=== PATIENT | female | born 1970 | race Two or more races ===

== ENCOUNTER 2024-03-09 06:45 | Day surgery (SDC) | payer MEDICAID, SELFPAY ==
[2024-03-06 14:43] VITALS: BMI 29.0
[2024-03-09] VITALS (7 sets, daily range): BP systolic 113–160; BP diastolic 69–92; PULSE 58–79; RESP 8–15; TEMP 36.6–36.8; O2SAT 98–100; BMI 30.7
[2024-03-09 08:06] LABS: HCG,Qualitative Serum Negative
[2024-03-09] MEDS: DiphenhydrAMINE INJ 50 MG/ML VIAL 25 MG IV (08:11)
[2024-03-09] MEDS: fentaNYL CIT INJ 50 mCg/ML AMP 2ML (ASD USE ONLY) IV (08:13)
[2024-03-09] MEDS: MIDAZOLAM INJ 1 MG/ML VIAL 2 ML (ASD USE ONLY) 2 MG IV (08:14)
== END 2024-03-09 09:12 | disposition home or self-care (01) ==
PROVIDERS: PCP Family Medicine; Referring Provider Surgery; Visit Provider Surgery
PROC: 0DBE8ZX Excision of Large Intestine, Via Natural or Artificial Opening Endoscopic, Diagnostic (ICD-10-PCS; CPT 45380; principal; 2024-03-09 07:30)
DX: K64.1 Second degree hemorrhoids (principal); K57.31 Diverticulosis of large intestine without perforation or abscess with bleeding
CPT/HCPCS: 45378; 36415; 81025; 84703; J1200; J2250; J3010

== ENCOUNTER 2024-09-03 13:27 | Outpatient (AMB) | payer MEDICAID, SELFPAY ==
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
--- NOTE | 2024-09-03 13:43 | XR_ITS ---
Examination: Bilateral knees single view Right knee PA lateral axial 3 views TECHNIQUE: Bilateral AP knees supine single view Right knee PA supine flexion single view lateral supine chest single view, axial right knee 3 views Date and time: September 03, 2024 1426 hours INDICATIONS: Patient fell 8 years ago with injury to the knee, persistent knee pain. FINDINGS: Advanced right knee tricompartment osteoarthritis including severe narrowing lateral joint space [id number] Ossified body above the right patella No acute fracture Partial visualization intramedullary femoral law Mild narrowing lateral joint space left knee No left knee fracture IMPRESSION: Advanced right knee tricompartment osteoarthritis
[2024-09-03 13:45] VITALS: BP 114/75; PULSE 79; RESP 18; TEMP 36.4; O2SAT 97
== END 2024-09-03 13:56 | disposition home or self-care (01) ==
LOC: HODSRG 13:27
PROVIDERS: PCP Family Medicine; Referring Provider Family Medicine; Supervising Provider Orthopaedic Surgery Adult Reconstructive Orthopaedic Surgery; Visit Provider Orthopaedic Surgery Adult Reconstructive Orthopaedic Surgery
DX: M17.11 Unilateral primary osteoarthritis, right knee (principal); M25.561 Pain in right knee
CPT/HCPCS: 73564; 99203; G0463

== ENCOUNTER 2024-09-24 08:15 | Outpatient (AMB) | payer MEDICAID, SELFPAY ==
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
[2024-09-24 08:30] VITALS: BP 131/81; PULSE 67; RESP 18; TEMP 36.3; O2SAT 97
== END 2024-09-24 08:54 | disposition home or self-care (01) ==
LOC: HODSRG 08:15
PROVIDERS: PCP Family Medicine; Referring Provider Family Medicine; Supervising Provider Orthopaedic Surgery Adult Reconstructive Orthopaedic Surgery; Visit Provider Orthopaedic Surgery Adult Reconstructive Orthopaedic Surgery
DX: M17.11 Unilateral primary osteoarthritis, right knee (principal); M25.561 Pain in right knee; M21.061 Valgus deformity, not elsewhere classified, right knee; Z99.3 Dependence on wheelchair
CPT/HCPCS: 20610; 99213; J1010; J2795; G0463

== ENCOUNTER 2024-11-05 15:30 | Outpatient (AMB) | payer MEDICAID, SELFPAY ==
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
[2024-11-05 15:37] VITALS: BP 126/83; PULSE 78; RESP 18; TEMP 36.8; O2SAT 97
== END 2024-11-05 15:47 | disposition home or self-care (01) ==
LOC: HODSRG 15:30
PROVIDERS: PCP Family Medicine; Referring Provider Family Medicine; Supervising Provider Orthopaedic Surgery Adult Reconstructive Orthopaedic Surgery; Visit Provider Orthopaedic Surgery Adult Reconstructive Orthopaedic Surgery
DX: M17.11 Unilateral primary osteoarthritis, right knee (principal); M25.561 Pain in right knee
CPT/HCPCS: 99213; G0463

== ENCOUNTER 2024-11-10 11:30 | Outpatient (RCR) | payer MEDICAID, SELFPAY ==
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
--- NOTE | 2024-11-04 12:43 | PT.ODAYNRPT ---
PT Outpatient Daily Note OP Daily Note Outpatient Physical Therapy Treatment Date: 11/04/24 Visit Reasons: RT knee pain Subjective: Pt brought in by . Objective: Please see flow sheet for ther ex list. Assessment: Pt demonstrates excessive medial collapse with standing and during GT. Pt instructed on strengthening interventions and encouraged to continue at home. Plan: Continue with pOC. Length of Time (minutes) of Treatment: 30 Minutes Procedure Charges Therapeutic Exercise 30 minutes: Yes
--- NOTE | 2024-11-10 12:54 | PT.ODAYNRPT ---
PT Outpatient Daily Note OP Daily Note Outpatient Physical Therapy Treatment Date: 11/10/24 Visit Reasons: RT knee pain Subjective: Pt reports she is doing well with minimal Rt knee pain. Objective: See F/S for therex performed Assessment: Demo'd significant weakness of hip abductors, advised to perform seated hip abduction at home. Presents with excessive medial collapsing of R LE when standing and ambulating. Pt demo'd eagerness to ambulate and perform standing exercises; educated on importance of safety and control - pt complied and understood. Plan: Continue with POC Length of Time (minutes) of Treatment: 30 Minutes Procedure Charges Therapeutic Exercise 30 minutes: Yes
== END 2024-11-10 23:59 | disposition home or self-care (01) ==
LOC: CPTX 11:30
PROVIDERS: PCP Orthopaedic Surgery Adult Reconstructive Orthopaedic Surgery; Referring Provider Orthopaedic Surgery Adult Reconstructive Orthopaedic Surgery; Visit Provider Orthopaedic Surgery Adult Reconstructive Orthopaedic Surgery
DX: M25.561 Pain in right knee (principal); R53.1 Weakness; M25.361 Other instability, right knee; M21.372 Foot drop, left foot; M21.371 Foot drop, right foot; M21.062 Valgus deformity, not elsewhere classified, left knee; M21.061 Valgus deformity, not elsewhere classified, right knee
CPT/HCPCS: 97110; 97162

== ENCOUNTER → 2024-11-17 | Outpatient (CLI) | payer MEDICAID, SELFPAY ==
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
== END | disposition home or self-care (01) ==
PROVIDERS: PCP Family Medicine; Referring Provider Orthopaedic Surgery Adult Reconstructive Orthopaedic Surgery; Visit Provider Orthopaedic Surgery Adult Reconstructive Orthopaedic Surgery
DX: M17.11 Unilateral primary osteoarthritis, right knee (principal)
CPT/HCPCS: 73700

== ENCOUNTER 2024-12-09 13:30 | Outpatient (RCR) | payer MEDICAID, SELFPAY ==
--- NOTE | 2024-11-12 14:07 | PTNOTE_ITS ---
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 Objective: See F/S for therex performed Assessment: Improvement with hip abductor strength, demo'd greater range of motion compared to first visit. Performs LE exercises best with a ball between her knees to help decrease excessive knee valgus. Plan: Continue with POC Length of Time (minutes) of Treatment: 30 Minutes Procedure Charges Therapeutic Exercise 30 minutes: Yes
--- NOTE | 2024-11-17 16:04 | PT.ODAYNRPT ---
PT Outpatient Daily Note OP Daily Note Outpatient Physical Therapy Treatment Date: 11/17/24 Visit Reasons: RT knee pain Subjective: Pt reports compliance with HEP. Objective: Please see flow sheet for ther ex list. Assessment: Added supine interventions but pt has poor tolerance laying on her back. Pt transfers from w/c to treatment bed xSBA. Plan: Continue with poC. Length of Time (minutes) of Treatment: 30 Minutes Procedure Charges Therapeutic Exercise 30 minutes: Yes
--- NOTE | 2024-11-23 17:57 | PT.ODAYNRPT ---
PT Outpatient Daily Note OP Daily Note Outpatient Physical Therapy Treatment Date: 11/23/24 Visit Reasons: RT knee pain Subjective: Doing HEP but R knee feels about the same in standing and walking Objective: See F/S for therex Assessment: Slow progress with therapy goals due to continued R knee dysfunction. She is wearing B AFO's which helps limit foot drop. Plan: Continue per POC Length of Time (minutes) of Treatment: 30 Minutes Procedure Charges Therapeutic Exercise 30 minutes: Yes
--- NOTE | 2024-11-25 17:58 | PT.ODAYNRPT ---
PT Outpatient Daily Note OP Daily Note Outpatient Physical Therapy Treatment Date: 11/25/24 Visit Reasons: RT knee pain Subjective: Doing HEP but R knee feels about the same in standing and walking Objective: See F/S for therex Assessment: Slow progress with therapy goals due to continued R knee dysfunction. She is wearing B AFO's which helps limit foot drop. Plan: Continue per POC Length of Time (minutes) of Treatment: 30 Minutes Procedure Charges Therapeutic Exercise 30 minutes: Yes
--- NOTE | 2024-12-02 16:01 | PT.ODAYNRPT ---
PT Outpatient Daily Note OP Daily Note Outpatient Physical Therapy Treatment Date: 12/02/24 Visit Reasons: RT knee pain Subjective: Pt reports she has a follow up with ortho specialist soon. Objective: Please see flow sheet for ther ex list. Assessment: Pt demonstrates excessive medial knee collapse with interventions, using ball in between knees to attempt to maintain LE in position as neutral as possible. Plan: Continue with POC. Length of Time (minutes) of Treatment: 30 Minutes Procedure Charges Therapeutic Exercise 30 minutes: Yes
--- NOTE | 2024-12-09 14:37 | PT.ODAYNRPT ---
PT Outpatient Daily Note OP Daily Note Outpatient Physical Therapy Treatment Date: 12/09/24 Visit Reasons: RT knee pain Subjective: Doing HEP but R knee feels about the same in standing and walking Objective: See F/S for therex Assessment: Slow progress with therapy goals due to continued R knee dysfunction. She is wearing B AFO's which helps limit foot drop. She ambulates about 60' in the parallel bars without rest and can do partial body weight squatting with high valgus of R knee. Plan: Continue per POC Length of Time (minutes) of Treatment: 30 Minutes Procedure Charges Therapeutic Exercise 30 minutes: Yes
== END 2024-12-11 23:59 | disposition home or self-care (01) ==
LOC: CPTX 13:30
PROVIDERS: PCP Orthopaedic Surgery Adult Reconstructive Orthopaedic Surgery; Referring Provider Orthopaedic Surgery Adult Reconstructive Orthopaedic Surgery; Visit Provider Orthopaedic Surgery Adult Reconstructive Orthopaedic Surgery
DX: M25.561 Pain in right knee (principal); R53.1 Weakness; M23.51 Chronic instability of knee, right knee; M17.11 Unilateral primary osteoarthritis, right knee
CPT/HCPCS: 97110

== ENCOUNTER 2024-12-17 07:47 | Outpatient (AMB) | payer MEDICAID, SELFPAY ==
[2024-12-17 08:06] VITALS: BP 118/79; PULSE 67; RESP 18; TEMP 36.5; O2SAT 98
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
== END 2024-12-17 08:28 | disposition home or self-care (01) ==
LOC: HODSRG 07:47
PROVIDERS: PCP Family Medicine; Referring Provider Family Medicine; Supervising Provider Orthopaedic Surgery Adult Reconstructive Orthopaedic Surgery; Visit Provider Orthopaedic Surgery Adult Reconstructive Orthopaedic Surgery
DX: M25.569 Pain in unspecified knee (principal); M17.11 Unilateral primary osteoarthritis, right knee; Z99.3 Dependence on wheelchair
CPT/HCPCS: 99213; G0463

== ENCOUNTER 2024-12-31 13:00 | Outpatient (RCR) | payer MEDICAID, SELFPAY ==
--- NOTE | 2024-12-15 14:45 | PTNOTE_ITS ---
PT Outpatient Daily Note OP Daily Note Outpatient Physical Therapy Treatment Date: 12/15/24 Visit Reasons: RT KNEE PAIN Subjective: Pt reports knee contiues to be unstable but tries to stay productive at home, doing chores and preparing meals as safe as she can using FWW and w/c. Pt mentioned she has a follow up with specialist this . Objective: Please see flow sheet for ther ex list. Assessment: Pt ambulates in parallel bars with heavy use of hands and excessive medial knee collapse. Pt is very motivated individual who is determined to complete inter ventions. Continued focus on improving quad strength and work on techniques to safely transfer, ambulate and stand. Plan: Continue with poC. Length of Time (minutes) of Treatment: 30 Minutes Procedure Charges Therapeutic Exercise 30 minutes: Yes
--- NOTE | 2024-12-17 14:39 | PT.ODAYNRPT ---
PT Outpatient Daily Note OP Daily Note Outpatient Physical Therapy Treatment Date: 12/17/24 Visit Reasons: RT KNEE PAIN Subjective: Doing HEP but R knee feels about the same in standing and walking. She went to consult with MD today. Objective: See F/S for therex Assessment: Slow progress with therapy goals due to continued R knee dysfunction and severe valgus. She is wearing B AFO's which helps limit foot drop. She ambulates about 60' in the parallel bars without rest and can do partial body weight squatting with high valgus of R knee. Plan: Continue per POC Length of Time (minutes) of Treatment: 30 Minutes Procedure Charges Therapeutic Exercise 30 minutes: Yes
--- NOTE | 2024-12-24 15:08 | PTNOTE_ITS ---
PT Outpatient Daily Note OP Daily Note Outpatient Physical Therapy Treatment Date: 12/24/24 Visit Reasons: RT KNEE PAIN Subjective: Pt reports no changes at this time. As per pt she had follow up with specialist Dr. Walker who let pt know he will not do surgery on her R knee but recommended pt follow up with PCP to be referred to [facility] to see specialist. Objective: Please see flow sheet for ther ex list. Assessment: Pt continues to have excessive medial knee collapse and relies on heavy use of hands for transfers. Plan: Pt has one visit left, PTOR to assess for note. Length of Time (minutes) of Treatment: 30 Minutes Procedure Charges Therapeutic Exercise 30 minutes: Yes
--- NOTE | 2024-12-31 13:57 | PT.ODS1RPT ---
PT OP Progress/Discharge Note Date of Service: 12/31/24 Progress Note/DC Note Progress Note/Discharge Note: DC Note Patient Information Visit Reasons: RT KNEE PAIN Service Continue Service or Discharge: Discharge Discharge Date: 12/31/24 Status Subjective: Doing HEP but R knee feels about the same in standing and walking. Objective: See F/S for therex Strength: 4-/5 quads and HS Flexion ROM: 105 deg Extension: full Valgus orientation Gait: heavy reliance on hands in parallel bars with valgus knees Assessment: Slow progress with therapy goals due to continued R knee dysfunction and severe valgus. She is wearing B AFO's which helps limit foot drop. She ambulates about 60' in the parallel bars without rest and can do partial body weight squatting with high valgus of R knee. Pt has met the quad strength goal and is independent with HEP. Pt hasn't met the goal of ambulating with FWW x75' since it's not safe for her to ambulate outside the parallel bars. Plan: D/C with HEP Procedure Charges Therapeutic Exercise 30 minutes: Yes
== END 2025-01-10 23:59 | disposition home or self-care (01) ==
LOC: CPTX 13:00
PROVIDERS: PCP Orthopaedic Surgery Adult Reconstructive Orthopaedic Surgery; Referring Provider Orthopaedic Surgery Adult Reconstructive Orthopaedic Surgery; Visit Provider Orthopaedic Surgery Adult Reconstructive Orthopaedic Surgery
DX: M25.561 Pain in right knee (principal); M25.361 Other instability, right knee; R53.1 Weakness; M17.11 Unilateral primary osteoarthritis, right knee
CPT/HCPCS: 97110